=== PATIENT | male | born 1990 | race Caucasian/White ===

== ENCOUNTER 2022-07-06 19:11 | Emergency (ER) | payer SELFPAY ==
[2022-07-06 19:15] VITALS: BP 120/77; PULSE 71; RESP 18; TEMP 37.2; O2SAT 99; BMI 30.1
[2022-07-06 19:51] LABS: Basophils % 0.3 %; Eosinophils # 0.1 10^3/uL (0.0-0.8); Eosinophils % 0.9 %; Hematocrit 48.4 % (42.0-52.0); Hemoglobin 16.3 g/dL (11.7-16.6); Lymphocytes # 1.3 10^3/uL (0.8-4.8); Lymphocytes % 10.4 %; Mean Corpuscular HGB Conc 33.7 g/dL (30.0-36.0); Mean Corpuscular Hemoglobin 30.3 pg (28.0-34.0); Mean Platelet Volume 9.6 fL (7.4-10.4); Monocytes # 1.1 10^3/uL (0.2-0.9); Monocytes % 8.4 %; Neutrophils # 10.01 10^3/uL (1.8-7.7); Neutrophils % 79.6 %; Nucleated Red Blood Cells % 0 %; Platelet Count 240 10^3/cmm (130-400); Red Blood Count 5.38 10^6/uL (4.1-5.3); Red Cell Distribution Width 11.6 % (12.1-15.1); White Blood Count 12.6 10^3/uL (4.0-10.0)
[2022-07-06 20:07] LABS: Alanine Aminotransferase 19 U/L (0-41); Alkaline Phosphatase 63 U/L (40-130); Anion Gap 15.9 (5-19); Aspartate Amino Transferase 18 U/L (0-40); Blood Urea Nitrogen 17 mg/dL (6-20); Calcium 9.5 mg/dL (8.5-10.5); Carbon Dioxide 23 mmol/L (22-29); Chloride 101 mmol/L (98-107); Glomerular Filtration Rate 99.1 mL/min (90-130); Glucose 99 mg/dL (65-115); Osmolality Calculated 284 mOsm/kg (285-295); Potassium 3.9 mmol/L (3.5-5.1); Sodium 136 mmol/L (136-145); Total Bilirubin 0.3 mg/dL (0.15-1.2)
[2022-07-06 20:08] LABS: Lactate (Lactic Acid level) 0.8 mmol/L (0.5-2.2)
--- NOTE | 2022-07-06 20:11 | ED_ITS ---
Documented by User: Teena Neff, BUILDING ENERGY CONSULTANT-C 07/06/22 21:32 HPI - Wound/Laceration General: Chief Complaint: Wound/Laceration Stated Complaint: right arm infection Time Seen by Provider: 07/06/22 19:23 History of Present Illness: Patient is in for infection to his right arm. He reports that he was here yesterday and he was started on Bactrim. He reports that he had redness and swelling to his right forearm that started approximately 4 days ago as what he thought was an ingrown hair. He reports that they brenda to the area of redness at the hospital yesterday and he was told that if it kept extending he needed to return to the ER. Patient reports that the redness is continuing to extend he really does not have a significant amount of pain but he has a little bit of pressure. He denies fever and chills stating that he had some chills on Sunday but really none since that time. He thinks that the chills on Sunday were nasal congestion and drainage related and he has been better since then. Associated symptoms: Denies chills or fever(s) Review of Systems Const: Denies: fever(s) or chills Card: Denies: chest pain, palpitations or irregular heart rhythm Resp: Denies: dyspnea, productive cough or non-productive cough Skin/Breast: Reports: other (Redness, swelling right forearm) Physical Exam Const: COMMON NORMALS: no acute distress, patient oriented x3 and alert Neck/C-Spine: COMMON NORMALS: no JVD Resp: COMMON NORMALS: normal respiratory effort, No use of accessory muscles and clear to auscultation bilaterally AUSCULTATION: clear to auscultation bilaterally Cardio: COMMON NORMALS: no JVD, regular rate, regular rhythm, S1 normal heart sound present, S2 normal heart sound present and No murmurs present (Cardio) RATE: regular rate RHYTHM: regular rhythm HEART SOUNDS: S1 normal heart sound present and S2 normal heart sound present Extremity: NARRATIVE EXTREMITY EXAM: Right dorsal forearm there is a pea-sized area scabbed eschar with surrounding erythema. There is obvious markings of the erythema has been marked and continued to progress beyond the markings. Erythema extends up to the elbow and slightly above the elbow on the lateral arm. Area is hot to touch. It is definitely more swollen surrounding the scabbed lesion. There is very minimal fluctuance palpated right around the scabbed lesion. Full flexion extension of fingers. Full range of motion of the arm. Sensation and movement within normal limits radial and ulnar pulses are palpable Neuro: COMMON NORMALS: patient oriented x3 SENSORIUM/ORIENTATION: Yes alert Procedures Abscess I/D Site: upper extremity Side (if applicable): right Local Anesthetic: lidocaine 1% Amount of anesthesia used (mL): 3 Technique: incised with #11 blade Amount of fluid expressed (mL): 0.5 Irrigation: No Packing used?: none Course ED course: Topical lidocaine administered and small incision is made parallel with the scabbed lesion on the forearm. Bloody drainage discharge no other purulence. Wound culture is collected. Patient tolerated procedure well; however after getting up to go to the bathroom prior to the procedure patient began having shivers and chills. Temperature is 100.4. White blood cell count is 12.6 which the patient attributes to his testosterone that he takes. Lactic acid is normal. I discussed the case with Dr. Barnard who agrees the patient could be admitted as failure to outpatient treatment. Patient does not wish to be admitted at this time. Admission is offered. Switch patient to clindamycin antibiotic first dose IV given here tonight. Send patient home with oral clindamycin with strict return precautions. Warm compresses to the arm 2-3 times daily. Advised patient of the risk of worsening infection even to potential sepsis. Advised him if he is having any worsening symptoms including, but not limited to worsening fever, chills, nausea, vomiting, increasing redness, increasing pain, increasing swelling he should return immediately to the emergency department. Patient is agreeable with plan of care. Vital Signs: Vital signs: Vital Signs Temperature 100.4 F H 07/06/22 20:33 Pulse Rate 93 07/06/22 21:36 Respiratory Rate 18 07/06/22 21:36 Blood Pressure 121/68 07/06/22 21:36 Pulse Oximetry 99 07/06/22 21:36 Oxygen Delivery Me thod 07/06/22 19:15 MDM - Wound/Laceration Medical Decision Making Consider cellulitis, abscess, tenosynovitis, sepsis Patient heart rate and blood pressure are within normal limits. Patient did develop a low-grade fever of 100.4 while in ER. Wound cultures obtained tonight. Labs obtained white blood cell count minimally elevated at 12.6. Lactic is normal. I discussed, at length, with the patient that I am concerned about treatment failure and need for IV antibiotics. I have concerns for w orsening cellulitis and development of sepsis. Patient is hesitant to be admitted because he is [employer] pay. He has been made aware of the ability to apply for financial assistance. He does report that he understands the risk of worsening infection development of sepsis which could be fatal or life or limb threatening. Patient wishes to be discharged home. Antibiotic changed to clindamycin and first dose IV is given in here. Marked to the area of erythema. Advised him if that is extending at all or if he has worsening fever or any other new or worsening symptoms he should return promptly to the ER. Patient is very agreeable. Lab Data 07/06/22 19:40 07/06/22 19:40 Laboratory Results WBC 12.6 10^3/uL (4.0-10.0) H 07/06/22 19:40 RBC 5.38 10^6/uL (4.1-5.3) H 07/06/22 19:40 Hgb 16.3 g/dL (11.7-16.6) 07/06/22 19:40 Hct 48.4 % (42.0-52.0) 07/06/22 19:40 MCV 90.0 fl (80-94) 07/06/22 19:40 MCH 30.3 pg (28.0-34.0) 07/06/22 19:40 MCHC 33.7 g/dL (30.0-36.0) 07/06/22 19:40 RDW 11.6 % (12.1-15.1) L 07/06/22 19:40 Plt Count 240 10^3/cmm (130-400) 07/06/22 19:40 MPV 9.6 fL (7.4-10.4) 07/06/22 19:40 Neut % (Auto) 79.6 % 07/06/22 19:40 Lymph % (Auto) 10.4 % 07/06/22 19:40 Russell % (Auto) 8.4 % 07/06/22 19:40 Eos % (Auto) 0.9 % 07/06/22 19:40 Baso % (Auto) 0.3 % 07/06/22 19:40 Neut # (Auto) 10.01 10^3/uL (1.8-7.7) H 07/06/22 19:40 Lymph # (Auto) 1.3 10^3/uL (0.8-4.8) 07/06/22 19:40 Russell # (Auto) 1.1 10^3/uL (0.2-0.9) H 07/06/22 19:40 Eos # (Auto) 0.1 10^3/uL (0.0-0.8) 07/06/22 19:40 Baso # (Auto) 0.0 10^3/uL (0.0-0.1) 07/06/22 19:40 Nucleated RBC % (auto) 0 % 07/06/22 19:40 Nucleated RBCs # 0.0 /100WBC 07/06/22 19:40 Sodium 136 mmol/L (136-145) 07/06/22 19:40 Potassium 3.9 mmol/L (3.5-5.1) 07/06/22 19:40 Chloride 101 mmol/L (98-107) 07/06/22 19:40 Carbon Dioxide 23 mmol/L (22-29) 07/06/22 19:40 Anion Gap 15.9 (5-19) 07/06/22 19:40 BUN 17 mg/dL (6-20) 07/06/22 19:40 Creatinine 0.9 mg/dL (0.7-1.2) 07/06/22 19:40 GFR Calculation 99.1 mL/min (90-130) 07/06/22 19:40 Glucose 99 mg/dL (65-115) 07/06/22 19:40 Calculated Osmolality 284 mOsm/kg (285-295) L 07/06/22 19:40 Lactate 0.8 mmol/L (0.5-2.2) 07/06/22 19:40 Calcium 9.5 mg/dL (8.5-10.5) 07/06/22 19:40 Total Bilirubin 0.3 mg/dL (0.15-1.2) 07/06/22 19:40 AST 18 U/L (0-40) 07/06/22 19:40 ALT 19 U/L (0-41) 07/06/22 19:40 Alkaline Phosphatase 63 U/L (40-130) 07/06/22 19:40 Total Protein 7.0 g/dL (6.6-8.7) 07/06/22 19:40 Albumin 4.0 g/dL (3.5-5.2) 07/06/22 19:40 Globulin 3.0 g/dL (1.3-4.6) 07/06/22 19:40 Discharge Plan Discharge Patient Disposition: Home Clinical Impression: Cellulitis Qualifiers: Site of cellulitis: extremity Site of cellulitis of extremity: upper extremity Laterality: right Qualified Code(s): L03.113 - Cellulitis of right upper limb Condition: Stable Prescriptions: New clindamycin HCl 300 mg capsule 300 mg PO Q8H 7 Days Qty: 21 0RF Discharge Orders: Discharge ED (Routine); Ordered 07/06/22 Ordered By: Teena Neff Referrals: Ariel Wagner Jr, MD [Primary Care Provider] - Discharge Diet: Usual diet Discharge Activity: Increase activity as tolerated Patient Instructions: Cellulitis (ED) Activity Restrictions/Additional Instructions: I am concerned about the progression of your infection. We will change your antibiotic to clindamycin. Stop the Bactrim. Warm compresses to the arm every 4-6 hours. Elevate the extremity. The redness is marked prior to you leaving the ER today. I have concerns that this could continue to worsen and even progressed to sepsis. Should the redness continue to extend beyond the markings, your fever worsen, you develop any new or worsening symptoms you sh ould return immediately to the emergency department as you may need to be admitted for IV antibiotics. Coding Level of Care Code ED Peanut Butter Maker for Chg Fwd Exam Expanded Problem Focused Documented by User: Timmy Reyes DO 07/07/22 05:04 HPI - Wound/Laceration General: Chief Complaint: Wound/Laceration Stated Complaint: right arm infection Time Seen by Provider: 07/06/22 19:23 Course Vital Signs: Vital signs: Vital Signs Temperature 100.4 F H 07/06/22 20:33 Pulse Rate 93 07/06/22 21:36 Respiratory Rate 18 07/06/22 21:36 Blood Pressure 121/68 07/06/22 21:36 Pulse Oximetry 99 07/06/22 21:36 Oxygen Delivery Me thod 07/06/22 19:15 MDM - Wound/Laceration Medical Decision Making Consider cellulitis, abscess, tenosynovitis, sepsis Patient heart rate and blood pressure are within normal limits. Patient did develop a low-grade fever of 100.4 while in ER. Wound cultures obtained tonight. Labs obtained white blood cell count minimally elevated at 12.6. Lactic is normal. I discussed, at length, with the patient that I am concerned about treatment failure and need for IV antibiotics. I have concerns for worsening cellulitis and development of sepsis. Patient is hesitant to be admitted because he is [employer] pay. He has been made aware of the ability to apply for financial assistance. He does report that he understands the risk of worsening infection development of sepsis which could be fatal or life or limb threatening. Patient wishes to be discharged home. Antibiotic changed to clindamycin and first dose IV is given in here. Marked to the area of erythema. Advised him if that is extending at all or if he has worsening fever or any other new or worsening symptoms he should return promptly to the ER. Patient is very agreeable. Chart reviewed and patient discussed with midlevel. Agree with assessment and plan. Lab Data 07/06/22 19:40 07/06/22 19:40 Laboratory Results WBC 12.6 10^3/uL (4.0-10.0) H 07/06/22 19:40 RBC 5.38 10^6/uL (4.1-5.3) H 07/06/22 19:40 Hgb 16.3 g/dL (11.7-16.6) 07/06/22 19:40 Hct 48.4 % (42.0-52.0) 07/06/22 19:40 MCV 90.0 fl (80-94) 07/06/22 19:40 MCH 30.3 pg (28.0-34.0) 07/06/22 19:40 MCHC 33.7 g/dL (30.0-36.0) 07/06/22 19:40 RDW 11.6 % (12.1-15.1) L 07/06/22 19:40 Plt Count 240 10^3/cmm (130-400) 07/06/22 19:40 MPV 9.6 fL (7.4-10.4) 07/06/22 19:40 Neut % (Auto) 79.6 % 07/06/22 19:40 Lymph % (Auto) 10.4 % 07/06/22 19:40 Russell % (Auto) 8.4 % 07/06/22 19:40 Eos % (Auto) 0.9 % 07/06/22 19:40 Baso % (Auto) 0.3 % 07/06/22 19:40 Neut # (Auto) 10.01 10^3/uL (1.8-7.7) H 07/06/22 19:40 Lymph # (Auto) 1.3 10^3/uL (0.8-4.8) 07/06/22 19:40 Russell # (Auto) 1.1 10^3/uL (0.2-0.9) H 07/06/22 19:40 Eos # (Auto) 0.1 10^3/uL (0.0-0.8) 07/06/22 19:40 Baso # (Auto) 0.0 10^3/uL (0.0-0.1) 07/06/22 19:40 Nucleated RBC % (auto) 0 % 07/06/22 19:40 Nucleated RBCs # 0.0 /100WBC 07/06/22 19:40 Sodium 136 mmol/L (136-145) 07/06/22 19:40 Potassium 3.9 mmol/L (3.5-5.1) 07/06/22 19:40 Chloride 101 mmol/L (98-107) 07/06/22 19:40 Carbon Dioxide 23 mmol/L (22-29) 07/06/22 19:40 Anion Gap 15.9 (5-19) 07/06/22 19:40 BUN 17 mg/dL (6-20) 07/06/22 19:40 Creatinine 0.9 mg/dL (0.7-1.2) 07/06/22 19:40 GFR Calculation 99.1 mL/min (90-130) 07/06/22 19:40 Glucose 99 mg/dL (65-115) 07/06/22 19:40 Calculated Osmolality 284 mOsm/kg (285-295) L 07/06/22 19:40 Lactate 0.8 mmol/L (0.5-2.2) 07/06/22 19:40 Calcium 9.5 mg/dL (8.5-10.5) 07/06/22 19:40 Total Bilirubin 0.3 mg/dL (0.15-1.2) 07/06/22 19:40 AST 18 U/L (0-40) 07/06/22 19:40 ALT 19 U/L (0-41) 07/06/22 19:40 Alkaline Phosphatase 63 U/L (40-130) 07/06/22 19:40 Total Protein 7.0 g/dL (6.6-8.7) 07/06/22 19:40 Albumin 4.0 g/dL (3.5-5.2) 07/06/22 19:40 Globulin 3.0 g/dL (1.3-4.6) 07/06/22 19:40 Discharge Plan Discharge Patient Disposition: Home Clinical Impression: Cellulitis Qualifiers: Site of cellulitis: extremity Site of cellulitis of extremity: upper extremity Laterality: right Qualified Code(s): L03.113 - Cellulitis of right upper limb Condition: Stable Prescriptions: New clindamycin HCl 300 mg capsule 300 mg PO Q8H 7 Days Qty: 21 0RF Discharge Orders: Discharge ED (Routine); Ordered 07/06/22 Ordered By: Teena Neff Referrals: Ariel Wagner Jr, MD [Primary Care Provider] - Discharge Diet: Usual diet Discharge Activity: Increase activity as tolerated Patient Instructions: Cellulitis (ED) Activity Restrictions/Additional Instructions: I am concerned about the progression of your infection. We will change your antibiotic to clindamycin. Stop the Bactrim. Warm compresses to the arm every 4-6 hours. Elevate the extremity. The redness is marked prior to you leaving the ER today. I have concerns that this could continue to worsen and even progressed to sepsis. Should the redness continue to extend beyond the markings, your fever worsen, you develop any new or worsening symptoms you should return immediately to the emergency department as you may need to be admitted for IV antibiotics. Coding Level of Care Code ED Peanut Butter Maker for Zander Fwd Exam Expanded Problem Focused
[2022-07-06] MEDS: clindamycin 600 MG/50 ML PREMIX 100 MG IV (20:24)
[2022-07-06 20:33] VITALS: TEMP 38
[2022-07-06 21:36] VITALS: BP 121/68; PULSE 93; RESP 18; O2SAT 99
== END 2022-07-06 21:40 | disposition home or self-care (01) ==
PROVIDERS: Emergency Provider Nurse Practitioner Family; PCP Pediatrics Adolescent Medicine
DX: L03.113 Cellulitis of right upper limb (principal)
CPT/HCPCS: 10060; 80053; 83605; 85025; 87070; 87077; 87186; 96365; 99284; J3490

== ENCOUNTER 2022-07-07 16:35 | Observation (INO) | payer SELFPAY ==
[2022-07-07 16:49] VITALS: BP 118/67; PULSE 87; RESP 16; TEMP 36.8; O2SAT 97; BMI 29.7
[2022-07-07 16:53] VITALS: BP 118/67; PULSE 87; RESP 16; TEMP 36.8; O2SAT 97
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
--- NOTE | 2022-07-07 17:15 | ECG_ITS ---
[facility] Test Date: 2022-07-07 Pat Name: Tram Us Department: Room: Gender: Male Teaching Artist: : 1990 Requested By: Timmy Hale Order Number: [id number] Katalina MD: Haley Spain M.D. Measurements Intervals [place] Rate: 73 P: 74 PA: 137 QRS: 76 QRSD: 110 T: 43 QT: 339 QTc: 375 Interpretive Statements SINUS RHYTHM POSSIBLE LEFT ATRIAL ENLARGEMENT [-0.1mV P-WAVE IN V1/V2] NONSPECIFIC ST & T-WAVE ABNORMALITY No previous ECG available for comparison Electronically Signed On 07-07-2022 17:32:56 [employer] INSPECTOR by Haley Spain M.D. [email or web address], [id number]
[2022-07-07] MEDS: sodium chloride 0.9% 1,000 ML 999 ML IV (17:41)
[2022-07-07 18:01] LABS: Basophils % 0.3 %; Eosinophils % 0.1 %; Hematocrit 47.7 % (42.0-52.0); Hemoglobin 16.3 g/dL (11.7-16.6); Lymphocytes # 0.8 10^3/uL (0.8-4.8); Lymphocytes % 5.9 %; Mean Corpuscular HGB Conc 34.2 g/dL (30.0-36.0); Mean Corpuscular Hemoglobin 30.5 pg (28.0-34.0); Mean Corpuscular Volume 89.3 fl (80-94); Monocytes # 1.7 10^3/uL (0.2-0.9); Monocytes % 12.2 %; Neutrophils # 11.17 10^3/uL (1.8-7.7); Neutrophils % 80.8 %; Nucleated Red Blood Cells % 0 %; Platelet Count 231 10^3/cmm (130-400); Red Blood Count 5.34 10^6/uL (4.1-5.3); Red Cell Distribution Width 11.7 % (12.1-15.1); White Blood Count 13.8 10^3/uL (4.0-10.0)
[2022-07-07 18:20] LABS: Alanine Aminotransferase 18 U/L (0-41); Albumin Level 3.9 g/dL (3.5-5.2); Alkaline Phosphatase 62 U/L (40-130); Anion Gap 16.3 (5-19); Aspartate Amino Transferase 16 U/L (0-40); Blood Urea Nitrogen 11 mg/dL (6-20); Calcium 9.5 mg/dL (8.5-10.5); Carbon Dioxide 23 mmol/L (22-29); Chloride 102 mmol/L (98-107); Globulin 3.3 g/dL (1.3-4.6); Glomerular Filtration Rate 87.7 mL/min (90-130); Glucose 91 mg/dL (65-115); Osmolality Calculated 283 mOsm/kg (285-295); Potassium 4.3 mmol/L (3.5-5.1); Sodium 137 mmol/L (136-145); Total Bilirubin 0.7 mg/dL (0.15-1.2); Total Protein 7.2 g/dL (6.6-8.7)
[2022-07-07] MEDS: vancomycin 1,000 MG in sodium chloride 0.9% 250 ML 250 MG IV (18:26)
[2022-07-07 18:34] LABS: Lactic Sepsis W/Reflex 0.8 mmol/L (0.5-2.2)
[2022-07-07 18:57] LABS: C Reactive Protein 155.6 mg/L (0.0-4.9)
[2022-07-07 19:20] LABS: Erythrocyte Sedimentation Rate 63 mm/hr (0-10)
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
[2022-07-07 20:35] LABS: Procalcitonin 0.21 ng/mL (0-0.5)
[2022-07-07] MEDS: piperacillin-tazobactam 3.375 GM in sodium chloride 0.9% (plus) 50 ML IV (20:36)
[2022-07-07] MEDS: sodium chloride 0.9% 1,000 ML 75 ML IV (20:36)
[2022-07-07 20:37] LABS: Ferritin 315 ng/mL (30-400)
[2022-07-07] MEDS: enoxaparin 40 mg/0.4 mL Syringe SUBCUT (20:42)
[2022-07-07 21:50] VITALS: BP 123/69; PULSE 83; RESP 16; TEMP 37.2; O2SAT 98
[2022-07-07] MEDS: ketorolac 30 mg/mL INJ 15 MG IVP (23:09)
[2022-07-08] VITALS (8 sets, daily range): BP systolic 99–127; BP diastolic 51–73; PULSE 80–106; RESP 15–16; TEMP 36.8–39.5; O2SAT 90–96
[2022-07-08] MEDS: vancomycin 1,250 MG/250 ML PIGGYBACK 250 MG IV ×3 (02:28→17:22)
[2022-07-08] MEDS: piperacillin-tazobactam 3.375 GM in sodium chloride 0.9% (plus) 50 ML IV ×3 (04:47→20:29)
[2022-07-08] MEDS: acetaminophen 500 mg Tablet PO ×3 (04:47→23:24)
[2022-07-08 04:51] LABS: Basophils % 0.3 %; Eosinophils % 0.2 %; Hematocrit 45.7 % (42.0-52.0); Hemoglobin 15.3 g/dL (11.7-16.6); Lymphocytes # 0.8 10^3/uL (0.8-4.8); Lymphocytes % 8.4 %; Mean Corpuscular HGB Conc 33.5 g/dL (30.0-36.0); Mean Corpuscular Hemoglobin 30.5 pg (28.0-34.0); Mean Platelet Volume 9.9 fL (7.4-10.4); Monocytes # 1.5 10^3/uL (0.2-0.9); Monocytes % 14.5 %; Neutrophils # 7.63 10^3/uL (1.8-7.7); Neutrophils % 76.1 %; Nucleated Red Blood Cells % 0 %; Platelet Count 220 10^3/cmm (130-400); Red Blood Count 5.02 10^6/uL (4.1-5.3); Red Cell Distribution Width 11.8 % (12.1-15.1)
[2022-07-08 05:21] LABS: Blood Urea Nitrogen 14 mg/dL (6-20); C Reactive Protein 181.2 mg/L (0.0-4.9); Calcium 8.9 mg/dL (8.5-10.5); Carbon Dioxide 24 mmol/L (22-29); Chloride 102 mmol/L (98-107); Glomerular Filtration Rate 87.7 mL/min (90-130); Glucose 88 mg/dL (65-115); Magnesium 1.9 mg/dL (1.7-2.3); Osmolality Calculated 280 mOsm/kg (285-295); Sodium 135 mmol/L (136-145)
[2022-07-08] MEDS: sennosides-docusate Tablet 1 TAB PO (08:40)
[2022-07-08] MEDS: sodium chloride 0.9% 1,000 ML 75 ML IV (08:43)
--- NOTE | 2022-07-08 13:39 | PM.PN ---
Subjective Subjective: Seen this morning. Fever 103.1 this morning at 4 AM. Patient laying in bed with his significant other at bedside. Vitals/I&O/Wt Last Vital Signs Temp 98.8 F 07/08/22 11:17 Pulse 94 07/08/22 11:17 Resp 16 07/08/22 11:17 BP 122/70 07/08/22 11:17 Pulse Ox 95 07/08/22 11:17 O2 Del Method 07/08/22 11:17 07/07/22 07/08/22 07/08/22 22:59 06:59 14:59 Intake Total 1250 / 1250 / 2029 1208.75 / 1208.75 Balance 1250 / 1250 / 2029 1208.75 / 1208.75 Weight last 48 hrs Weight 91.172 kg Physical Exam Narrative: Lymphangitis Cellulitis of right arm, erythema streaks trending up to right axilla, no lymphadenopathy Awake and alert, nonfocal neuro exam S1, S2 EOMI, PERRLA Room air Pleasant mood and awake and alert Cooperative Abdomen soft No signs of compartment syndrome Good vascular supply right arm Data 07/08/22 03:43 07/08/22 03:43 Micro: Microbiology 07/07/22 17:49 Blood Culture - Preliminary Blood SPECIMEN COLLECTED 07/07/22 17:45 Blood Culture - Preliminary Blood SPECIMEN COLLECTED A&P Assessment and plan (1) Lymphangitis: (2) Anabolic steroid abuse: (3) Cellulitis: Qualifiers: Laterality: right Site of cellulitis: extremity Site of cellulitis of extremity: upper extremity Qualified Code(s): L03.113 - Cellulitis of right upper limb Plan Progressive cellulitis right arm Symptoms started this Sunday with a small blister Patient is febrile, moderate leukocytosis, significant inflammatory markers noted No signs of sepsis lactic acid is normal without endorgan damage We will give him liberal IV fluids along vancomycin and Zosyn Most likely he will receive 48 hours of IV antibiotics before discharge check CT arm Regular diet/cardiac diet DVT prophylaxis Lovenox Full code Anti-inflammatory analgesics such as ibuprofen/Toradol Attestations Medical Necessity Statement*: Anticipating discharge within 48 hours Time Spent in Patient Care: 40 minutes Coding Level of Care Code Acute Press Set Up for [facility] Fwd Diagnoses Lymphangitis I89.1 Anabolic steroid abuse F55.3 Cellulitis L03.113 Laterality: right Site of cellulitis: extremity Site of cellulitis of extremity: upper extremity
--- NOTE | 2022-07-08 13:45 | CTR_ITS ---
PROCEDURE INFORMATION: Exam: CT Right Upper Extremity Without Contrast, Forearm Exam date and time: 07/08/2022 2:30 PM Age: 31 years old Clinical indication: Swelling; Arm, lower; Right; Additional info: R/O abscess TECHNIQUE: Imaging protocol: Computed tomography of the Right upper extremity without contrast. Exam focused on the forearm. Radiation optimization: All CT scans at this facility use at least one of these dose optimization techniques: automated exposure control; mA and/or kV adjustment per patient size (includes targeted exams where dose is matched to clinical indication); or iterative reconstruction. COMPARISON: No relevant prior studies available. RADIATION DOSE METRICS: Total DLP (mGy-cm): 209.28 FINDINGS: Bones/joints: Normal. No acute fracture or dislocation. Soft tissues: Diffuse circumferential soft tissue edema is identified extending from the lower arm through the form which is the area scanned. There is no definite loculated fluid collection. Contrast was not given. Soft tissue edema does abut the musculature in the dorsal side of the forearm and the presence of infection of the muscle or inflammation of the muscle cannot be excluded. On image through there is a density measuring 24 x 9 mm in the dorsal aspect of the mid forearm. This could be a underlying mass or hematoma or other inflammatory process. CT/CT forearm RT wo con* [id number] IMPRESSION: 1. Diffuse soft tissue inflammatory changes without discrete fluid collection. This does abut the posterior dorsal musculature and is most severe dorsally. 2. Questionable mass dorsally. 3. Recommend MRI for better evaluation.
[2022-07-08] MEDS: ibuprofen 200 mg Tablet PO ×2 (14:44→20:29)
[2022-07-08 18:26] LABS: Vancomycin Trough 6.5 ug/mL (10-15)
--- NOTE | 2022-07-08 18:42 | CTR_ITS ---
PROCEDURE INFORMATION: Exam: CT Right Upper Extremity With Contrast, Forearm Exam date and time: 07/08/2022 7:41 PM Age: 31 years old Clinical indication: Swelling; Arm, lower; Right; Additional info: Abscess , compartmernt syndrome TECHNIQUE: Imaging protocol: Computed tomography of the Right upper extremity with contrast. Exam focused on the forearm. Radiation optimization: All CT scans at this facility use at least one of these dose optimization techniques: automated exposure control; mA and/or kV adjustment per patient size (includes targeted exams where dose is matched to clinical indication); or iterative reconstruction. Contrast material: OMNI 350; Contrast volume: 100 ml; Contrast route: INTRAVENOUS (IV); COMPARISON: CT forearm RT wo con* [id number] 07/08/2022 2:30 PM RADIATION DOSE METRICS: Total DLP (mGy-cm): 402.83 FINDINGS: Bones/joints: No acute fracture or dislocation. No bony erosions or periosteal changes to suggest acute osteomyelitis. Well maintained joint spaces. No elbow joint effusion. Soft tissues: Extensive moderate-severe subcutaneous soft tissue edema mostly throughout the medial and posterior aspect of the distal humeral, elbow and forearm region.. No soft tissue gas or large enhancing soft tissue mass. There is a somewhat discrete low-density subcutaneous collection with enhancing rim in the posterior aspect of the proximal through mid forearm, with partially enhancing rim suggesting extensive phlegmonous tissue/organizing abscess. Due to the ill-defined margins, it is difficult to measure but is estimated to be approximately 5-6 cm circumferentially, 1.5 cm in thickness and 10-11 mm craniocaudad, sagittal series 6, image 43 and axial series 4, image 106. Targeted ultrasound correlation may be obtained to assess feasibility and localization of percutaneous drainage if clinically indicated. No deep intramuscular collection/hematoma or deep fascial plane fluid to suggest aggressive process such as necrotizing fasciitis. However clinical correlation and follow-up should be obtained. Vasculature: No obvious large branch venous thrombosis. CT/CT forearm RT w con [id number] IMPRESSION: 1. Subcutaneous soft tissue edema, likely on the basis of cellulitis. Ill-defined area of phlegmonous tissue versus organizing ill-defined abscess within the dorsal subcutaneous tissue of the proximal/mid forearm region as described. Please see discussion above. Sonographic correlation may be helpful. 2. No soft tissue gas, extension into the deep soft tissue compartments or acute osseous findings.
[2022-07-08] MEDS: iohexol 350 mg/mL 500 mL Btl (per mL) IV (18:58)
[2022-07-09] VITALS (22 sets, daily range): BP systolic 97–143; BP diastolic 40–90; PULSE 73–101; RESP 14–19; TEMP 36.6–39.4; O2SAT 91–98
[2022-07-09] MEDS: vancomycin 1,500 MG/300 ML PIGGYBACK 200 MG IV ×3 (02:07→17:40)
[2022-07-09] MEDS: sodium chloride 0.9% 1,000 ML 75 ML IV ×2 (02:07→15:10)
[2022-07-09] MEDS: piperacillin-tazobactam 3.375 GM in sodium chloride 0.9% (plus) 50 ML IV ×3 (04:55→19:41)
[2022-07-09 05:22] LABS: Basophils % 0.2 %; Eosinophils % 0.2 %; Hematocrit 41.5 % (42.0-52.0); Hemoglobin 13.7 g/dL (11.7-16.6); Lymphocytes # 1.1 10^3/uL (0.8-4.8); Lymphocytes % 9.7 %; Mean Corpuscular Hemoglobin 30.1 pg (28.0-34.0); Mean Corpuscular Volume 91.2 fl (80-94); Mean Platelet Volume 9.4 fL (7.4-10.4); Monocytes # 1.6 10^3/uL (0.2-0.9); Monocytes % 14.9 %; Neutrophils # 8.21 10^3/uL (1.8-7.7); Neutrophils % 74.5 %; Nucleated Red Blood Cells % 0 %; Platelet Count 195 10^3/cmm (130-400); Red Blood Count 4.55 10^6/uL (4.1-5.3); Red Cell Distribution Width 11.9 % (12.1-15.1)
[2022-07-09 05:39] LABS: Anion Gap 12.5 (5-19); Blood Urea Nitrogen 8 mg/dL (6-20); Calcium 7.3 mg/dL (8.5-10.5); Carbon Dioxide 23 mmol/L (22-29); Chloride 108 mmol/L (98-107); Creatinine Clr Calc Pharmacy 150.6557; Glomerular Filtration Rate 113.5 mL/min (90-130); Glucose 89 mg/dL (65-115); Osmolality Calculated 288 mOsm/kg (285-295); Potassium 3.5 mmol/L (3.5-5.1); Sodium 140 mmol/L (136-145)
[2022-07-09] MEDS: ibuprofen 200 mg Tablet PO (06:00)
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
--- NOTE | 2022-07-09 08:34 | USR_ITS ---
PROCEDURE INFORMATION: Exam: US Duplex Right Upper Extremity Veins, Limited Exam date and time: 07/09/2022 9:58 AM Age: 31 years old Clinical indication: Edema, localized and swelling (edema) of limb; Upper extremity, right; Additional info: Arm cellulitis, swelling, R/O dvt TECHNIQUE: Imaging protocol: Real-time Duplex ultrasound of the Right Upper Extremity with 2-D aceves scale, color Doppler flow and spectral waveform analysis with image documentation. Limited exam focused on the right upper extremity veins. COMPARISON: No relevant prior studies available. FINDINGS: Right deep veins: Unremarkable. Axillary and brachial veins are patent throughout without thrombus. Normal Doppler waveforms. Normal compressibility and/or augmentation response. Visualized internal jugular and subclavian veins are patent. Right superficial veins: Unremarkable. Visualized cephalic and basilic veins are patent without thrombus. Soft tissues: Unremarkable. US/[place] [id number] IMPRESSION: No evidence of deep vein thrombosis in the right upper extremity.
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
--- NOTE | 2022-07-09 10:10 | PM.PN ---
Subjective Subjective: Seen this morning. He was evaluated by general surgery earlier today. Patient to be seen by orthopedic surgery and potentially go for debridement procedure at . Vitals/I&O/Wt Last Vital Signs Temp 99.2 F 07/09/22 08:00 Pulse 86 07/09/22 08:00 Resp 16 07/09/22 08:00 BP 133/67 07/09/22 08:00 Pulse Ox 92 07/09/22 08:00 O2 Del Method 07/09/22 08:00 07/08/22 07/09/22 07/09/22 22:59 06:59 14:59 Intake Total 800 / 2007.75 760 / 2768.75 50 / 50 Balance 800 / 2007.75 760 / 2768.75 50 / 50 Weight last 48 hrs Weight 91.172 kg Physical Exam Narrative: Lymphangitis Cellulitis of right arm, erythema streaks trending up to right axilla, no lymphadenopath. Redness has improved overall however there is definitely seems to be an underlying fluctuance closer to dorsal forearm. Awake and alert, nonfocal neuro exam S1, S2 EOMI, PERRLA Room air Pleasant mood and awake and alert Cooperative Abdomen soft No signs of compartment syndrome Good vascular supply right arm Data 07/09/22 05:10 07/09/22 05:10 Micro: Microbiology 07/07/22 17:49 Blood Culture - Preliminary Blood NEGATIVE TO DATE 07/07/22 17:45 Blood Culture - Preliminary Blood NEGATIVE TO DATE A&P Assessment and plan (1) Lymphangitis: (2) Anabolic steroid abuse: (3) Cellulitis: Qualifiers: Laterality: right Site of cellulitis: extremity Site of cellulitis of extremity: upper extremity Qualified Code(s): L03.113 - Cellulitis of right upper limb Plan Progressive cellulitis right arm Symptoms started this Sunday with a small blister Patient is febrile, moderate leukocytosis, significant inflammatory markers noted No signs of sepsis lactic acid is normal without endorgan damage We will give him liberal IV fluids along vancomycin and Zosyn Most likely he will receive 48 hours of IV antibiotics before discharge CT arm complete. Patient does have a underlying abscess. General surgery consulted. Orthopedic surgery consulted. Regular diet/cardiac diet DVT prophylaxis Lovenox Full code Anti-inflammatory analgesics such as ibuprofen/Toradol Attestations Medical Necessity Statement*: Anticipating discharge within 24 hours. Patient will have debridement today and then have more doses of IV antibiotics. Cultures will be obtained and potentially discharge tomorrow with oral antibiotics. We will continue to see how patient does clinically. 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
--- NOTE | 2022-07-09 12:00 | XR_ITS ---
WS: [id number] C-ARM RADIOGRAPHS RIGHT FOREARM; 5 IMAGES HISTORY: DEBRIDEMENT AND IRRIGATION COMPARISON: Prior CT 07/08/2022 Intraoperative imaging during debridement of the developing abscess along the dorsal soft tissues of the forearm. XR/XR forearm RT 2V [id number] IMPRESSION: Intraoperative imaging during abscess debridement RIGHT forearm.
--- NOTE | 2022-07-09 12:15 | SUR.PHASEI ---
[id number] TO PACU 5 AWAKE ALERT TALKATIVE, PT DENIES PAIN, VSS. ANESTHESIA AT BEDSIDE. RT ARM SWOLLEN AND MARKED, DR JIM AT BEDSIDE,.
[2022-07-09] MEDS: sodium chloride 0.9% 1,000 ML 30 ML IV ×2 (12:18→13:55)
--- NOTE | 2022-07-09 12:19 | SUR.PHASEI ---
FAMILY IN TO SEE PT , PT TO OR AWAKE ALERT TALKATIVE WITH STAFF.
[2022-07-09] MEDS: vancomycin 1,000 MG SDV 1000 MG XX (13:21)
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
--- NOTE | 2022-07-09 14:01 | PM.OP2 ---
Brief Operative Note Date of procedure: 07/09/22 Pre-op diagnosis: Right forearm abscess Post-op diagnosis: same Procedure Done: Right forearm irrigation and debridement (16 cm x 9 cm x 3 cm) cultures of abscess taken and sent for micro Surgeon: Allen Meyers Estimated blood loss (mL): 20 Complications: None Post-op Plan: Patient recovering in PACU. Will be returned to the floor. Continue IV antibiotics continue to monitor cultures. Elevation and ice maintain volar splint may wiggle fingers as tolerated. IV Toradol scheduled. Orthopedics will continue to follow on the floor. 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
--- NOTE | 2022-07-09 14:02 | ANE.PACU2 ---
Inpatient post-anesthesia follow up: Airway intact: Yes Vital signs: Temperature 99.5 F Pulse Rate 83 Respiratory Rate 18 Blood Pressure 129/72 Pulse Oximetry 96 Oxygen Delivery Me thod Room Air Oxygen Flow Rate 8 Fraction of Inspir ed Oxygen Hydration adequate: Yes Nausea and vomiting: No Pain level: 4 Mental status: Baseline
--- NOTE | 2022-07-09 14:05 | PM.PACU ---
PACU note Narrative: Patient seen evaluated in PACU. Pain controlled. Dressing on in place clean dry and intact. Patient is able to wiggle fingers, sensation tact light touch distally. Fingertips are warm well perfused. Compartment soft compressible. Exam: awake Disposition: back to floor
--- NOTE | 2022-07-09 14:05 | PM.OP ---
Operative Report Date of procedure: July 09, 2022 Pre-op diagnosis: Right forearm abscess with cellulitis Post-op diagnosis: Right forearm abscess with cellulitis Procedure done: Right forearm irrigation and debridement (16 cm x 9 cm x 3 cm wound debridement of skin subcutaneous tissue and fascia) Obtain abscess cultures Specimens removed/disposition: Aerobic and anaerobic cultures of abscess fluid sent for microbiology Surgeon: Allen Meyers DO Estimated blood loss: 20 cc 31 minutes IV fluids: 900 mL Complications: None Findings: See operative report narrative Condition: stable Disposition: floor Brief History: Patient was admitted to the hospital for right forearm cellulitis. He has been treated in the outpatient setting with p.o. antibiotics as well as presented to emergency department and had a small abscess of his forearm IDed in the emergency department. He is failed outpatient treatment and p.o. antibiotics and he was subsequently admitted for IV antibiotics. He was admitted by the primary team. He had an elevated WBC count as well as CRP. He was treated with IV antibiotics and had no improvement. General surgery was consulted for possible abscess IV contrast right forearm demonstrates cellulitis as well as possible fluid accumulation or phlegmon. This appeared to be subcutaneous in nature this was reviewed by the general surgeon and concern for infection may be too extensive and recommended orthopedic consultation. As result I was consulted for evaluation. Patient had palpable fluctuance over his right forearm this appeared to be a site of which he injects steroids. 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 My review of CT scan with contrast does reveal a right forearm abscess that appears to be subcutaneous in nature. He is failed conservative antibiotics IV treatment and his CRP has slightly increased. Continued erythema and tracking proximally noted. As result of talked about treatment options far as nonoperative and operative intervention. This point I would recommend I&D of the right forearm. He understands the risk benefits complication alternatives surgical nonsurgical treatment options. This point he is failed conservative treatment this would be my recommendation. He understands and elects to proceed with surgical intervention. All questions answered at this time. He agrees to proceed with surgical intervention. Procedure: Patient seen evaluated the preoperative once cleared for surgery was taken back to the operative suite. He was transported onto the OR table and placed in supine position with an armboard to the right upper extremity. All bony prominences well-padded patient was appropriately secured to the bed. Nonsterile tourniquet applied to the right upper extremity. Patient received appropriate antibiotics as he was receiving antibiotics on the floor for this abscess. Final timeout performed. Right upper extremity was then elevated and tourniquet insufflated to 250 mmHg. Patient had a large abscess over the dorsal aspect of the forearm. Given the attenuation of the skin tissue in this region I elected to place a more dorsal and ulnarly based incision extending from the wrist all the way up proximally to the lateral epicondyle. Sharp scalpel excision was made through skin and subcutaneous tissue. I used electrocautery with the Bovie to maintain exact hemostasis throughout my dissection. Immediately on entering the subcutaneous tissue I encountered patient's large abscess. The entire extent of this forearm abscess and I&D was 16 cm x 9 cm x 3 cm. Once evacuating the abscess I then evaluated the wound bed. At this point I debrided all necrotic tissue of skin subcutaneous tissue fat and fascia. No muscle belly or necrosis or bone was debrided. This was debrided with sharp scalpel excision with scalpel as well as rongeur of all devitalized tissue once again the wound bed measured 16 cm x 9 cm x 3 cm. I did braided this to healthy bleeding tissue. At this point time I then ran 9 L of normal saline through gravity cystoscopy tubing throughout the wound bed. There was no extent of this going deep into the fascia and I debrided all the necrotic tissue off of the fascia. This was all taken to healthy tissue. At this point time once the wound bed was thoroughly cleaned and irrigated I then took a hemostat and bluntly poked into the dorsal forearm muscle bellies. There was no evidence of deep intramuscular abscess in the muscle bellies were healthy. At this point given the extent of the abscess I elected to place a [place] drain. I debrided the subcutaneous tissue underneath where the abscess was this was necrotic and left a small hole which was ellipticized with prescription scalpel excision and then this was reapproximated with interrupted nylon suture. Next the tourniquet was deflated hemostasis was satisfactory I then finally irrigated the wound bed and then poured a gram of vancomycin powder as previous cultures are growing MRSA. Next I closed this in layered fashion with deep 2-0 PDS suture tacked down to the fascia to help close down the space leaving the [place] drain in place to help with drainage. I closed in the skin with interrupted nylon suture significant drain in place to allow for appropriate decompression. Once this was completed Xeroform 4 x 4's ABD Curlex soft roll and a volar splint was applied to the right upper extremity. Patient was then taken to PACU in stable condition. Disposition: Patient taken to PACU in stable condition recovering well return to the floor. We will continue with empiric IV antibiotics for 24 hours postoperatively. We will recheck his incision tomorrow if he is trending in appropriate direction WBC count and CRP is downtrending will discharge. We will alter antibiotics as sensitivities return. Patient will follow-up with me in the office in 2 weeks. Patient understands and agrees with current plan. All questions answered.
--- NOTE | 2022-07-09 14:06 | SUR.PHASEI ---
1351 PT TO PACU [address] SLE[address] DISTAL RT FINGERS PINK WARM WITH CAP REFILL LESS THAN 3 SECONDS DRESSING TO RT FOREARM D/I FIRST ICE TO SITE, PT MONITOR SR IWTH NO ECTOPY, IV TO LT FA PATENT OF NS 1000ML UP AT KVO RATE PER GRAVITY. 1400 PT AWAKES AND LMA OUT, IV PATENT, PT TALKATIVE DENIES PAIN, PT MOVES FINGERS TO COMMAND, PT STATES HE HAS NORMAL SENSATION. PT ON RA TRIAL, VSS. 1411 PT AWAKE AND TALKS AND LAUGHS NON STOP, DENIES PAIN AND NAUSEA, VSS IV PATENT MONITOR SR NO ECTOPY, RT FA SITE UNCHANGED AND DISTAL FINGERS PINK WARM WITH CAP REFILL LESS THAN 3 SECONDS.
[2022-07-09] MEDS: ketorolac 30 mg/mL INJ 15 MG IVP ×2 (14:35→20:29)
[2022-07-09] MEDS: acetaminophen 500 mg Tablet PO ×2 (15:58→21:47)
[2022-07-09] MEDS: enoxaparin 40 mg/0.4 mL Syringe SUBCUT (19:24)
[2022-07-09] MEDS: oxyCODONE 5 mg IR Tab/Cap PO ×2 (19:40→23:39)
[2022-07-09 21:16] LABS: Amphetamines Screen Urine Negative (Negative); Barbiturates Screen Urine Negative (Negative); Benzodiazepines Screen Urine Negative (Negative); Cocaine Screen Urine Negative (Negative); Opiate Screen Urine Negative (Negative); PCP Screen Urine Negative (Negative); THC Screen Urine Negative (Negative)
[2022-07-09] MEDS: sodium chloride 0.9% 1,000 ML 150 ML IV (21:48)
[2022-07-10] VITALS: BP 121/69; PULSE 72; RESP 16; TEMP 36.9; O2SAT 95
[2022-07-10] MEDS: vancomycin 1,500 MG/300 ML PIGGYBACK 200 MG IV ×2 (01:09→10:55)
[2022-07-10] MEDS: sodium chloride 0.9% 1,000 ML 150 ML IV (02:17)
[2022-07-10] MEDS: ketorolac 30 mg/mL INJ 15 MG IVP ×2 (02:18→07:55)
[2022-07-10] MEDS: acetaminophen 500 mg Tablet PO ×2 (02:52→07:56)
[2022-07-10 04:00] VITALS: BP 129/67; PULSE 84; RESP 17; TEMP 37.2; O2SAT 95
[2022-07-10] MEDS: piperacillin-tazobactam 3.375 GM in sodium chloride 0.9% (plus) 50 ML IV (04:17)
[2022-07-10 07:19] LABS: Basophils % 0.2 %; Eosinophils # 0.1 10^3/uL (0.0-0.8); Eosinophils % 1.8 %; Hematocrit 41.8 % (42.0-52.0); Hemoglobin 13.5 g/dL (11.7-16.6); Lymphocytes # 0.8 10^3/uL (0.8-4.8); Lymphocytes % 13.2 %; Mean Corpuscular HGB Conc 32.3 g/dL (30.0-36.0); Mean Corpuscular Hemoglobin 29.7 pg (28.0-34.0); Mean Corpuscular Volume 92.1 fl (80-94); Mean Platelet Volume 9.9 fL (7.4-10.4); Monocytes # 0.7 10^3/uL (0.2-0.9); Monocytes % 11.1 %; Neutrophils # 4.43 10^3/uL (1.8-7.7); Nucleated Red Blood Cells % 0 %; Platelet Count 204 10^3/cmm (130-400); Red Blood Count 4.54 10^6/uL (4.1-5.3); Red Cell Distribution Width 12.1 % (12.1-15.1); White Blood Count 6.1 10^3/uL (4.0-10.0)
[2022-07-10 07:44] LABS: Anion Gap 11.9 (5-19); Blood Urea Nitrogen 10 mg/dL (6-20); Carbon Dioxide 22 mmol/L (22-29); Chloride 106 mmol/L (98-107); Glomerular Filtration Rate 132.4 mL/min (90-130); Glucose 84 mg/dL (65-115); Osmolality Calculated 280 mOsm/kg (285-295); Potassium 3.9 mmol/L (3.5-5.1); Sodium 136 mmol/L (136-145)
[2022-07-10 08:00] VITALS: BP 111/62; PULSE 84; RESP 16; TEMP 36.6; O2SAT 95
[2022-07-10 09:48] LABS: Vancomycin Trough 8.1 ug/mL (10-15)
--- NOTE | 2022-07-10 11:02 | PC.OT ---
Checked on pt. via informal interview and chart review. Pt. underwent irrigation and debridement on 07/09 for R UE secondary to cellulitis. Pt. states no concerns for independence and lives with his girlfriend who is able to provide assistance as needed. Pt. is safe to discharge home with caregiver assistance as needed. No need for skilled OT at this time, D/C OT order. Pt. educated to functionally use UE during daily activities as appropriate and to don upper body dressing starting with affected extremity.
--- NOTE | 2022-07-10 11:16 | P.DS_ITS ---
Discharge Providers Date of Admission: 07/07/22 19:59 Date of Discharge: July 10, 2022 Attending Provider at Admission: Ervin Dupont MD Attending Provider at Discharge: Ervin Dupont MD Primary Care Provider: Ariel Wagner Jr, MD Diagnoses at Discharge Discharge Diagnosis (1) Lymphangitis: Status: Acute (2) Anabolic steroid abuse: Status: Acute (3) Cellulitis: Status: Acute Qualifiers: Laterality: right Site of cellulitis: extremity Site of cellulitis of extremity: upper extremity Qualified Code(s): L03.113 - Cellulitis of right upper limb Reason for Visit Reason for Visit: pain worse, R Arm Pain Hospital Course Hospital Course 31-year-old male who was admitted for management evaluation of purulent cellulitis of right arm, there was concern for abscess, CT scan was done with contrast which showed significant abscess collection Dr. Santana recommended orthopedic evaluation, Dr. Meyers was consulted, patient went for I&D right forearm irrigation status post debridement 16 cm x 9 x 3 cm subcutaneous tissue and fascia, no myositis or compartment syndrome related changes noted. Culture showed MRSA. 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 Patient to follow-up with Dr. Meyers outpatient Discharge Data Studies Completed and Pending Completed Studies During Hospitalization Category Date Time Status CT forearm RT w con [id number] Stat Cat Scan 07/08/22 18:[address] forearm RT wo con* [id number] Stat Cat Scan 07/08/22 13:45 Completed XR forearm RT 2V [id number] Routine Exams 07/09/22 12:00 [place] [id number] Stat Ultrasound 07/09/22 08:34 Completed Pending at discharge Category Date Time Status Abscess Culture and Gram Stain Routine Lab 07/09/22 12:45 Results Anaerobic Culture Routine Lab 07/09/22 13:25 Uncollected Blood Culture Stat Lab 07/07/22 17:49 Results Radiology Impressions Forearm CT 07/08/22 18:42 IMPRESSION: 1. Subcutaneous soft tissue edema, likely on the basis of cellulitis. Ill-defined area of phlegmonous tissue versus organizing ill-defined abscess within the dorsal subcutaneous tissue of the proximal/mid forearm region as described. Please see discussion above. Sonographic correlation may be helpful. 2. No soft tissue gas, extension into the deep soft tissue compartments or acute osseous findings. Venous Duplex 07/09/22 08:34 IMPRESSION: No evidence of deep vein thrombosis in the right upper extremity. Forearm X-Ray 07/09/22 12:00 IMPRESSION: Intraoperative imaging during abscess debridement RIGHT forearm. Laboratory Results WBC 6.1 10^3/uL (4.0-10.0) 07/10/22 06:54 RBC 4.54 10^6/uL (4.1-5.3) 07/10/22 06:54 Hgb 13.5 g/dL (11.7-16.6) 07/10/22 06:54 Hct 41.8 % (42.0-52.0) L 07/10/22 06:54 MCV 92.1 fl (80-94) 07/10/22 06:54 MCH 29.7 pg (28.0-34.0) 07/10/22 06:54 MCHC 32.3 g/dL (30.0-36.0) 07/10/22 06:54 RDW 12.1 % (12.1-15.1) 07/10/22 06:54 Plt Count 204 10^3/cmm (130-400) 07/10/22 06:54 MPV 9.9 fL (7.4-10.4) 07/10/22 06:54 Neut % (Auto) 73.0 % 07/10/22 06:54 Lymph % (Auto) 13.2 % 07/10/22 06:54 [place] % (Auto) 11.1 % 07/10/22 06:54 Eos % (Auto) 1.8 % 07/10/22 06:54 Baso % (Auto) 0.2 % 07/10/22 06:54 Neut # (Auto) 4.43 10^3/uL (1.8-7.7) 07/10/22 06:54 Lymph # (Auto) 0.8 10^3/uL (0.8-4.8) 07/10/22 06:54 [place] # (Auto) 0.7 10^3/uL (0.2-0.9) 07/10/22 06:54 Eos # (Auto) 0.1 10^3/uL (0.0-0.8) 07/10/22 06:54 Baso # (Auto) 0.0 10^3/uL (0.0-0.1) 07/10/22 06:54 Nucleated RBC % (auto) 0 % 07/10/22 06:54 Nucleated RBCs # 0.0 /100WBC 07/10/22 06:54 ESR 63 mm/hr (0-10) H 07/07/22 17:45 Sodium 136 mmol/L (136-145) 07/10/22 06:54 Potassium 3.9 mmol/L (3.5-5.1) 07/10/22 06:54 Chloride 106 mmol/L (98-107) 07/10/22 06:54 Carbon Dioxide 22 mmol/L (22-29) 07/10/22 06:54 Anion Gap 11.9 (5-19) 07/10/22 06:54 BUN 10 mg/dL (6-20) 07/10/22 06:54 Creatinine 0.7 mg/dL (0.7-1.2) 07/10/22 06:54 GFR Calculation 132.4 mL/min (90-130) H 07/10/22 06:54 Glucose 84 mg/dL (65-115) 07/10/22 06:54 Calculated Osmolality 280 mOsm/kg (285-295) L 07/10/22 06:54 Lactic Acid 0.8 mmol/L (0.5-2.2) 07/07/22 17:45 Calcium 8.0 mg/dL (8.5-10.5) L 07/10/22 06:54 Magnesium 1.9 mg/dL (1.7-2.3) 07/08/22 03:43 Ferritin 315 ng/mL (30-400) 07/07/22 17:45 Total Bilirubin 0.7 mg/dL (0.15-1.2) 07/07/22 17:45 AST 16 U/L (0-40) 07/07/22 17:45 ALT 18 U/L (0-41) 07/07/22 17:45 Alkaline Phosphatase 62 U/L (40-130) 07/07/22 17:45 C-Reactive Protein 137.0 mg/L (0.0-4.9) H 07/10/22 06:54 Total Protein 7.2 g/dL (6.6-8.7) 07/07/22 17:45 Albumin 3.9 g/dL (3.5-5.2) 07/07/22 17:45 Globulin 3.3 g/dL (1.3-4.6) 07/07/22 17:45 Procalcitonin 0.21 ng/mL (0-0.5) 07/07/22 17:45 Vancomycin Trough 8.1 ug/mL (10-15) L 07/10/22 09:12 Urine Opiates Screen Negative ng/mL (Negative) 07/09/22 21:01 Ur Barbiturates Screen Negative ng/mL (Negative) 07/09/22 21:01 Ur Phencyclidine Scrn Negative ng/mL (Negative) 07/09/22 21:01 Ur Amphetamines Screen Negative ng/mL (Negative) 07/09/22 21:01 U Benzodiazepines Scrn Negative ng/mL (Negative) 07/09/22 21:01 Urine Cocaine Screen Negative ng/mL (Negative) 07/09/22 21:01 U Marijuana (THC) Screen Negative ng/mL (Negative) 07/09/22 21:01 Vitals Last Vital Signs Temp 98 F 07/10/22 08:00 Pulse 84 07/10/22 08:00 Resp 16 07/10/22 08:00 BP 111/62 07/10/22 08:00 Pulse Ox 95 07/10/22 08:00 O2 Del Method 07/09/22 20:00 O2 Flow Rate 8 07/09/22 14:00 Discharge Plan Discharge Patient Disposition: Home Condition: Stable Prescriptions: New oxycodone 5 mg Tablet 5 mg PO Q8H PRN (Reason: Moderate To Severe Pain) Qty: 6 0RF sulfamethoxazole-trimethoprim [Bactrim DS] 800-160 mg tablet 1 tab PO DAILY 10 Days Qty: 20 0RF Discontinued clindamycin HCl 300 mg capsule 300 mg PO Q8H 7 Days Qty: 21 0RF Discharge Orders: Discharge Order (Routine); Ordered 07/10/22 Ordered By: Ervin Dupont Referrals: Ariel Wagner Jr, MD [Primary Care Provider] - [facility], [Staff Physician] - 1-3 days Allen Meyers DO [Physician] - 7-10 days Patient Instructions: Opioid Safety Discharge Attestations 2 Time Spent in Discharge Care*: less than 30 min Quality Metrics Clinical Quality Measures [ No reported AMI, CVA or VTE this stay] Coding Level of Care Code Acute Chg FW DC note Diagnoses Lymphangitis I89.1 Anabolic steroid abuse F55.3 Cellulitis L03.113 Laterality: right Site of cellulitis: extremity Site of cellulitis of extremity: upper extremity
[2022-07-10 12:00] VITALS: BP 111/62; PULSE 84; RESP 16; TEMP 36.6; O2SAT 95
--- NOTE | 2022-07-10 12:48 | P.PN_ITS ---
Subjective Subjective: Patient seen and examined this morning doing extremely well significant improvement in his pain/pressure his CRP is down trended his white count has normalized. He is completed over 24 hours IV antibiotics since surgery. Seen by internal medicine and okay to discharge at this standpoint. Stable from Ortho standpoint dressing changed today and [place] drain pulled. Significant clinical improvement. We will follow-up with me in the office in 2 weeks Vitals/I&O/Wt Last Vital Signs Temp 98 F 07/10/22 08:00 Pulse 84 07/10/22 08:00 Resp 16 07/10/22 08:00 BP 111/62 07/10/22 08:00 Pulse Ox 95 07/10/22 08:00 O2 Del Method 07/09/22 20:00 O2 Flow Rate 8 07/09/22 14:00 07/09/22 07/10/22 07/10/22 22:59 06:59 14:59 Intake Total 2094.50 / 3344.50 1922.5 / 5267.00 1660 / 1660 Output Total 150 / 170 Balance 1944.50 / 3174.50 1922.5 / 5097.00 1660 / 1660 Physical Exam Narrative: Dressing to the right upper extremity with volar splint subsequen tly taken down incision inspected and is significantly improved. Sutures and Xeroform in place [place] drain pulled atraumatically. He had serosanguineous/bloody discharge with no expressible purulence at this time. Significant resolution of cellulitis and induration. Wrist resolution of erythema proximally above the elbow. Induration has consolidated. He is able to flex and extend elbow without any issues or pain able to wiggle fingers. Sensation tact light touch distally. Distal pulses palpable. Compartment soft compressible. Data 07/10/22 06:54 07/10/22 06:54 Other Labs: CRP down trended to 130 today just 1 day postop Micro: Microbiology 07/09/22 12:45 Gram Stain - Final Arm - Right Abscess Culture - Preliminary Coag positive Staphylococcus A&P Assessment and plan (1) Abscess of right forearm: (2) Cellulitis: Qualifiers: Laterality: right Site of cellulitis: extremity Site of cellulitis of extremity: upper extremity Qualified Code(s): L03.113 - Cellulitis of right upper limb (3) Anabolic steroid abuse: (4) Lymphangitis: Plan Patient doing well postoperatively. CRP down trended WBC count normalized. Patient denies any fevers no issues at this time. Dressing taken down and significant clinical improvement with no reaccumulation of abscess cellulitis and induration is resolving. Pain improved. Completed IV antibiotics. Recommend discharge p.o. antibiotics as well as anti-inflammatory and pain control elevation and ice. May weight-bear as tolerated to the right upper extremity. Leave dressing on in place until follow-up. We will follow-up with Dr. Meyers in the office in 1 to 2 weeks for repeat evaluation of incision. We will continue with p.o. antibiotics per primary team. We will continue to monitor cultures and change antibiotic if needed for sensitivities. Patient understands if any questions or concerns and contact the office. Stable for discharge from orthopedic standpoint. Attestations Medical Necessity Statement*: Right forearm abscess requiring surgical intervention IV antibiotics Coding Level of Care Code Acute [facility] Fwd Diagnoses Abscess of right forearm L02.413 Cellulitis L03.113 Laterality: right Site of cellulitis: extremity Site of cellulitis of extremity: upper extremity Anabolic steroid abuse F55.3 Lymphangitis I89.1 Time Spent (min) 35
--- NOTE | 2022-07-10 12:53 | PC.PT ---
Dr. Dupont recommends cancel PT treatment
[2022-07-10 13:26] VITALS: BP 111/62; PULSE 84; RESP 16; TEMP 36.6; O2SAT 95
== END 2022-07-10 13:27 | disposition home or self-care (01) ==
LOC: ER 19:57 → MEDSURG 07-08 06:12
PROVIDERS: Family Medicine; Internal Medicine; Student in an Organized Health Care Education/Training Program; Admitting Provider Internal Medicine; Emergency Provider Emergency Medicine; PCP Pediatrics Adolescent Medicine; Visit Provider Internal Medicine
PROC: (CPT 11043; principal; 2022-07-09 12:30)
DX: L02.413 Cutaneous abscess of right upper limb (principal); L03.113 Cellulitis of right upper limb; F55.3 Abuse of steroids or hormones; I89.1 Lymphangitis
CPT/HCPCS: 11043; 11046 ×6; 36415; 73090; 73200; 73201; 76000; 80048; 80053; 80202; 80306; 82728; 83605; 83735; 84145; 85025; 85651; 86140; 87040; 87070; 87075; 87077; 87186; 87205; 93005; 93971; 96365; 96366; 96367; 96372; 96375; 99285; G0378; J0131; J1170; J1650; J1885; J2543; J2704; J3010; J3370; J7030; J7050; Q9967